=== PATIENT | female | born 2000 | race Caucasian/White ===

== ENCOUNTER 2022-10-14 13:21 | Emergency (ER) | payer MEDICAID ==
[~2022-10-14] VITALS: Ht 160 cm; Wt 57.0 kg
[2022-10-14] MEDS ORDERED: ONDANSETRON 4MG ODT PO ONE (18:15)
[2022-10-14] MEDS ORDERED: SODIUM CHLORIDE 0.9% 1,000 ML IV ONE (19:00)
[2022-10-14 19:18] LABS: BASOPHILS % 0.2 % (0.0-2.0); EOSINOPHILS % 0.3 % (0.0-5.0); HEMOGLOBIN. 15.7 g/dL (12.0-16.0); LYMPHOCYTES % 27.5 % (20.0-50.0); MEAN CORPUSCULAR HEMOGLOBIN 28.7 pg (28.0-32.0); MEAN CORPUSCULAR VOLUME 84.3 fL (81.0-99.0); MEAN PLATELET VOLUME 9.1 fl (7.4-10.4); MONOCYTES % 11.6 % (2.0-8.0); NEUTROPHILS % 60.4 % (40.0-76.0); PLATELET 301 x1000/uL (130-400); RED BLOOD CELL COUNT 5.47 mill/uL (4.2-5.4); RED CELL DISTRIBUTION WIDTH 12.7 % (11.6-14.6)
[2022-10-14 19:28] LABS: CHLORIDE 82 mEq/L (98-107)
[2022-10-14 19:32] LABS: HCG SCREEN NEGATIVE
[2022-10-14 19:37] LABS: PHOSPHORUS 2.8 mg/dL (2.5-4.9)
[2022-10-14] MEDS ORDERED: KCL 20MEQ/100ML PREMIX 100 ML IV NR ×2 (20:00→22:00)
[2022-10-15 00:04] LABS: CHLORIDE 94 mEq/L (98-107)
[2022-10-15] MEDS ORDERED: ONDA4TAB50 MT (00:29)
[2022-10-15] MEDS ORDERED: POTA-205 MT (00:29)
[2022-10-15] MEDS ORDERED: POTASSIUM CHLORIDE 20MEQ TABLET SR PO ONE (00:30)
[2022-10-15 00:44] VITALS: BP 125/78
== END 2022-10-15 00:45 | disposition home or self-care (01) ==
LOC: ER 13:21 → CANBEDREQ 10-15 07:20
DX: E87.6 Hypokalemia (principal); R94.31 Abnormal electrocardiogram [ECG] [EKG]; F41.9 Anxiety disorder, unspecified; F32.9 Major depressive disorder, single episode, unspecified
CPT/HCPCS: 36415; 80048; 80053; 81025; 83690; 83735; 84100; 84703; 85025; 93005; 96365; 99284; J7030; Q0162